=== PATIENT | male | born 1950 | race Caucasian/White ===

== ENCOUNTER → 2017-11-07 | Outpatient (CLI) | payer OTHER, MEDICARE | END | disposition home or self-care (01) | LOC: US 09:29 | PROVIDERS: ATTEND Internal Medicine Nephrology | DX: N18.9 Chronic kidney disease, unspecified (principal) | CPT/HCPCS: 76770 ==

== ENCOUNTER 2017-11-10 21:44 | Inpatient (IN) | payer OTHER, MEDICARE ==
[~2017-11-10] VITALS: Ht 162.6 cm; Wt 76.2 kg
[2017-11-11] MEDS ORDERED: DIPHENHYDRAMINE 25MG CAPSULE PO ONE (01:30)
[2017-11-11] MEDS ORDERED: ALBUTEROL (0.083%) 2.5MG/3ML NEB HHN STA (06:45)
[2017-11-11 07:14] LABS: HEMATOCRIT. 35.3 % (42.0-52.0); HEMOGLOBIN. 12.3 g/dL (14.0-18.0); MEAN CORPUSCULAR HEMOGLOBIN 30.4 pg (28.0-32.0); MEAN CORPUSCULAR VOLUME 86.9 fL (80.0-94.0); MEAN PLATELET VOLUME 6.6 fl (7.4-10.4); PLATELET 379 x1000/uL (130-400); RED BLOOD CELL COUNT 4.07 mill/uL (4.7-6.1); RED CELL DISTRIBUTION WIDTH 12.8 % (11.6-14.6)
[2017-11-11 07:23] LABS: INR 1.1; PROTHROMBIN TIME 11.9 sec (9.4-11.6)
[2017-11-11] MEDS ORDERED: DOXYCYCLINE HYCLATE 100 MG/VIAL IV SCH (07:30)
[2017-11-11] MEDS ORDERED: CEFTRIAXONE 1 G PREMIX 50 ML IV ONE (07:30)
[2017-11-11 07:43] LABS: PLATELET ESTIMATE NORMAL
[2017-11-11 08:06] LABS: CARBON DIOXIDE 30 mEq/L (21-32); CHLORIDE 86 mEq/L (98-107); TROPONIN I < 0.02 ng/mL (0.00-0.04)
[2017-11-11] MEDS: DIPHENHYDRAMINE 25MG CAPSULE PO SCH ×2 (09:08→22:35)
[2017-11-11] MEDS ORDERED: LACTATED RINGERS 1,000 ML IV STA (09:17)
[2017-11-11] MEDS ORDERED: DEXAMETHASONE 4MG/ML 1ML VIAL IV ONE (09:30)
[2017-11-11] MEDS ORDERED: SODIUM CHLORIDE 0.9% 1,000 ML IV ONE (09:30)
[2017-11-11] MEDS ORDERED: CLONIDINE 0.1MG TABLET PO PRN (12:00)
[2017-11-11] MEDS ORDERED: KETOROLAC 15MG/ML VIAL IV PRN (12:00)
[2017-11-11] MEDS ORDERED: MAGNESIUM/ALUMINUM HYDROXIDE/SIMETHICONE 30ML UDC PO PRN (12:00)
[2017-11-11] MEDS ORDERED: ONDANSETRON HCL 4MG/2ML VIAL IV PRN (12:00)
[2017-11-11] MEDS ORDERED: ACETAMINOPHEN 325MG TABLET PO PRN (12:00)
[2017-11-11] MEDS ORDERED: IPRATROPIUM/ALBUTEROL 0.5-3(2.5)MG/3ML NEB INH PRN (12:00)
[2017-11-11] MEDS ORDERED: ZOLPIDEM TARTRATE 5MG TABLET PO PRN (12:00)
[2017-11-11] MEDS ORDERED: NA PHOS,M-B/NA PHOS,DI-BA ENEMA 118ML PR PRN (12:00)
[2017-11-11] MEDS ORDERED: NITROGLYCERIN 0.4MG TABLET SL SL PRN (12:00)
[2017-11-11] MEDS ORDERED: MORPHINE SULFATE 2 MG/ML CPJ (NOT FOR IM USE) IV PRN (12:00)
[2017-11-11] MEDS: ENOXAPARIN 40MG/0.4ML SYR SUBCUT SCH (12:53)
[2017-11-11] MEDS ORDERED: AZITHROMYCIN 500 MG in DEXT 5% WATER 250 ML IV SCH (13:00)
[2017-11-11] MEDS ORDERED: DOXYCYCLINE 100 MG in SODIUM CHLORIDE 0.9% 100 ML IV NR (13:37)
[2017-11-11 13:59] LABS: VITAMIN B12 SERUM 1071 pg/mL (211-911)
[2017-11-11] MEDS: LORAZEPAM 0.5MG TABLET PO PRN ×2 (14:08→23:28)
[2017-11-11 14:11] LABS: FOLIC ACID (FOLATE) SERUM > 20.00 ng/mL (>5.38)
[2017-11-11 14:19] LABS: CREATINE KINASE 506 IU/L (39-308); CREATINE KINASE MB FRACTION 8.2 ng/mL (0.5-3.6); TROPONIN I < 0.02 ng/mL (0.00-0.04)
[2017-11-11] MEDS ORDERED: LEVOFLOXACIN 500MG PREMIX 100 ML IV ONE (15:30)
[2017-11-11] MEDS ORDERED: IPRATROPIUM/ALBUTEROL 0.5-3(2.5)MG/3ML NEB HHN PRN (15:45)
[2017-11-11 16:07] LABS: BG BASE EXCESS 1.9 mmol/L (-2.0-2.0); BG BILEVEL POS AIRWAY PRESSURE 15/5; BG CARBOXYHEMOGLOBIN 0.2 % (0.5-1.5); BG DEOXYHEMOGLOBIN 4.4 % (0.0-5.0); BG FRACTION INSPIRED OXYGEN 35; BG HCO3 ACT 27.6 mmol/L (22.0-26.0); BG METHEMOGLOBIN 0.3 % (0.0-1.5); BG OXYGEN SATURATION 95.6 % (92.0-98.5); BG OXYHEMOGLOBIN 95.1 % (94.0-97.0); BG PCO2 47.9 mmHg (35.0-45.0); BG PH 7.379 (7.350-7.450); BG PO2 82.8 mmHg (75.0-100.0); BG SAMPLE SITE RIGHT RADIAL; BG TOTAL HEMOGLOBIN 12.5 g/dL (12.0-18.0); BG VENT MODE MASK - BIPAP
[2017-11-11] MEDS ORDERED: DEXTROSE 50% WATER 50ML SYRINGE IV PRN (16:45)
[2017-11-11] MEDS: BLOOD SUGAR DIAGNOSTIC STRIP TEST SCH (21:00)
[2017-11-11] MEDS ORDERED: FAMOTIDINE 20MG/2ML VIAL IV SCH (21:00)
[2017-11-11 21:30] VITALS: BP 126/75
[2017-11-11 22:00] VITALS: BP 137/83
[2017-11-11] MEDS ORDERED: POTASSIUM CHLORIDE 20MEQ TABLET SR PO NR (22:00)
[2017-11-11] MEDS: INSULIN LISPRO 100 UNITS/ML SUBCUT SCH (22:00)
[2017-11-11] MEDS: FAMOTIDINE 20MG/2ML VIAL IV SCH (22:07)
[2017-11-11] MEDS ORDERED: LEVOFLOXACIN 500MG PREMIX 100 ML IV NR (23:00)
[2017-11-11] MEDS ORDERED: VANCOMYCIN 1500MG in DEXTROSE 5% WATER 250ML IV NR (23:00)
[2017-11-11 23:44] LABS: CREATINE KINASE 927 IU/L (39-308); CREATINE KINASE MB FRACTION 13.7 ng/mL (0.5-3.6); TROPONIN I < 0.02 ng/mL (0.00-0.04)
[2017-11-11] MEDS: DIPHENHYDRAMINE 50MG/ML VIAL IV PRN (23:56)
[2017-11-12] VITALS (12 sets, daily range): BP systolic 103–141; BP diastolic 51–79
[2017-11-12] MEDS: METHYLPREDNISOLONE SOD SUCC 40 MG/ML VIAL IV SCH ×4 (00:58→17:14)
[2017-11-12] MEDS: IPRATROPIUM/ALBUTEROL 0.5-3(2.5)MG/3ML NEB HHN SCH ×4 (01:12→19:28)
[2017-11-12 03:25] LABS: CLARITY URINE CLEAR (CLEAR); COLOR URINE YELLOW (YELLOW); KETONES URINE NEGATIVE (NEGATIVE); LEUKOCYTE ESTERASE URINE NEGATIVE (NEGATIVE); NITRITE URINE NEGATIVE (NEGATIVE); OCCULT BLOOD URINE NEGATIVE (NEGATIVE); PROTEIN URINE NEGATIVE (NEGATIVE); SPECIFIC GRAVITY URINE 1.017 (1.005-1.030)
[2017-11-12 03:55] LABS: *AMPHETAMINES SCREEN URINE NEGATIVE (NEGATIVE); *BARBITURATES SCREEN URINE NEGATIVE (NEGATIVE); *BENZODIAZEPINES SCREEN URINE NEGATIVE (NEGATIVE); *COCAINE SCREEN URINE NEGATIVE (NEGATIVE); CANNABINOID URINE SCREEN NEGATIVE (NEGATIVE); METHADONE URINE SCREEN NEGATIVE (NEGATIVE); OPIATES URINE SCREEN PRESUMTIVE POSITIVE (NEGATIVE); PHENCYCLIDINE URINE SCREEN NEGATIVE (NEGATIVE)
[2017-11-12] MEDS: DIPHENHYDRAMINE 25MG CAPSULE PO SCH (05:47)
[2017-11-12] MEDS: BLOOD SUGAR DIAGNOSTIC STRIP TEST SCH ×4 (06:04→21:26)
[2017-11-12 07:07] LABS: BG BASE EXCESS 2.3 mmol/L (-2.0-2.0); BG CARBOXYHEMOGLOBIN 0.3 % (0.5-1.5); BG DEOXYHEMOGLOBIN 3.8 % (0.0-5.0); BG HCO3 ACT 27.4 mmol/L (22.0-26.0); BG OXYGEN SATURATION 96.2 % (92.0-98.5); BG OXYHEMOGLOBIN 95.9 % (94.0-97.0); BG PCO2 44.3 mmHg (35.0-45.0); BG PH 7.409 (7.350-7.450); BG SAMPLE SITE RIGHT RADIAL; BG TOTAL HEMOGLOBIN 11.7 g/dL (12.0-18.0); BG VENT MODE NASAL CANNULA
[2017-11-12] MEDS: INSULIN LISPRO 100 UNITS/ML SUBCUT SCH ×4 (07:20→22:00)
[2017-11-12] MEDS: ENOXAPARIN 40MG/0.4ML SYR SUBCUT SCH (07:55)
[2017-11-12] MEDS: FAMOTIDINE 20MG/2ML VIAL IV SCH ×2 (07:55→21:06)
[2017-11-12] MEDS ORDERED: CEFTRIAXONE 1 G PREMIX 50 ML IV SCH (09:00)
[2017-11-12] MEDS ORDERED: IOHEXOL-350 100 ML BOTTLE ONE (09:39)
[2017-11-12] MEDS ORDERED: DIPHENHYDRAMINE 50MG/ML VIAL IV PRN (10:45)
[2017-11-12] MEDS ORDERED: VANCOMYCIN 1 G PREMIX 200 ML IV SCH (11:00)
[2017-11-12] MEDS: DIPHENHYDRAMINE 50MG/ML VIAL IV PRN (14:50)
[2017-11-12 15:24] LABS: BASOPHILS % 0.2 % (0.0-2.0); EOSINOPHILS % 0.9 % (0.0-5.0); HEMATOCRIT. 32.5 % (42.0-52.0); HEMOGLOBIN. 11.4 g/dL (14.0-18.0); LYMPHOCYTES % 1.6 % (20.0-50.0); MEAN CORPUSCULAR HEMOGLOBIN 31.1 pg (28.0-32.0); MEAN CORPUSCULAR VOLUME 89.1 fL (80.0-94.0); MONOCYTES % 0.6 % (2.0-8.0); NEUTROPHILS % 96.7 % (40.0-76.0); PLATELET 372 x1000/uL (130-400); RED BLOOD CELL COUNT 3.65 mill/uL (4.7-6.1)
[2017-11-12 15:36] LABS: CARBON DIOXIDE 33 mEq/L (21-32); CHLORIDE 91 mEq/L (98-107)
[2017-11-12] MEDS ORDERED: LEVOFLOXACIN 500MG PREMIX 100 ML IV SCH (21:00)
[2017-11-12] MEDS: LEVOFLOXACIN 500MG PREMIX 100 ML IV SCH ×2 (21:00→21:05)
[2017-11-13] VITALS (13 sets, daily range): BP systolic 111–143; BP diastolic 65–81
[2017-11-13] MEDS: IPRATROPIUM/ALBUTEROL 0.5-3(2.5)MG/3ML NEB HHN SCH ×4 (02:15→20:25)
[2017-11-13] MEDS: METHYLPREDNISOLONE SOD SUCC 40 MG/ML VIAL IV SCH ×2 (06:02)
[2017-11-13] MEDS: BLOOD SUGAR DIAGNOSTIC STRIP TEST SCH ×4 (06:03→21:36)
[2017-11-13] MEDS: INSULIN LISPRO 100 UNITS/ML SUBCUT SCH ×4 (06:04→21:00)
[2017-11-13] MEDS: ENOXAPARIN 40MG/0.4ML SYR SUBCUT SCH (08:21)
[2017-11-13] MEDS: FAMOTIDINE 20MG/2ML VIAL IV SCH ×2 (08:21→21:37)
[2017-11-14] VITALS (18 sets, daily range): BP systolic 115–160; BP diastolic 54–83
[2017-11-14] MEDS: IPRATROPIUM/ALBUTEROL 0.5-3(2.5)MG/3ML NEB HHN SCH (02:18)
[2017-11-14] MEDS: DIPHENHYDRAMINE 50MG/ML VIAL IV PRN ×3 (02:40→23:46)
[2017-11-14] MEDS: BLOOD SUGAR DIAGNOSTIC STRIP TEST SCH ×4 (05:45→21:09)
[2017-11-14] MEDS: INSULIN LISPRO 100 UNITS/ML SUBCUT SCH ×4 (07:20→21:00)
[2017-11-14] MEDS: FAMOTIDINE 20MG/2ML VIAL IV SCH ×2 (08:12→21:01)
[2017-11-14] MEDS: ENOXAPARIN 40MG/0.4ML SYR SUBCUT SCH (08:12)
[2017-11-14] MEDS: PREDNISONE 20MG TABLET PO SCH (12:20)
[2017-11-14] MEDS: GUAIFENESIN 200MG/10ML SUGAR FREE UDC PO PRN (19:36)
[2017-11-14] MEDS: LEVOFLOXACIN 500MG PREMIX 100 ML IV SCH (21:03)
[2017-11-15] VITALS (16 sets, daily range): BP systolic 111–167; BP diastolic 59–102
[2017-11-15] MEDS: IPRATROPIUM/ALBUTEROL 0.5-3(2.5)MG/3ML NEB HHN SCH ×4 (01:20→21:23)
[2017-11-15] MEDS: DIPHENHYDRAMINE 50MG/ML VIAL IV PRN (04:27)
[2017-11-15] MEDS: GUAIFENESIN 200MG/10ML SUGAR FREE UDC PO PRN (06:00)
[2017-11-15] MEDS: BLOOD SUGAR DIAGNOSTIC STRIP TEST SCH ×4 (06:00→20:13)
[2017-11-15 06:49] LABS: BASOPHILS % 0.1 % (0.0-2.0); EOSINOPHILS % 6.1 % (0.0-5.0); HEMATOCRIT. 31.2 % (42.0-52.0); HEMOGLOBIN. 10.7 g/dL (14.0-18.0); LYMPHOCYTES % 8.4 % (20.0-50.0); MEAN CORPUSCULAR HEMOGLOBIN 30.8 pg (28.0-32.0); MEAN CORPUSCULAR VOLUME 89.6 fL (80.0-94.0); MEAN PLATELET VOLUME 7.4 fl (7.4-10.4); NEUTROPHILS % 78.4 % (40.0-76.0); PLATELET 350 x1000/uL (130-400); RED BLOOD CELL COUNT 3.48 mill/uL (4.7-6.1); RED CELL DISTRIBUTION WIDTH 13.2 % (11.6-14.6)
[2017-11-15 07:18] LABS: CARBON DIOXIDE 29 mEq/L (21-32); CHLORIDE 94 mEq/L (98-107)
[2017-11-15] MEDS: INSULIN LISPRO 100 UNITS/ML SUBCUT SCH ×4 (07:20→20:14)
[2017-11-15] MEDS: PREDNISONE 20MG TABLET PO SCH (08:52)
[2017-11-15] MEDS: FAMOTIDINE 20MG/2ML VIAL IV SCH ×2 (08:52→20:17)
[2017-11-15] MEDS: ENOXAPARIN 40MG/0.4ML SYR SUBCUT SCH (08:53)
[2017-11-15] MEDS: LEVOFLOXACIN 500MG PREMIX 100 ML IV SCH (20:20)
[2017-11-16] VITALS (15 sets, daily range): BP systolic 91–185; BP diastolic 67–104
[2017-11-16] MEDS: DIPHENHYDRAMINE 50MG/ML VIAL IV PRN ×4 (01:03→23:21)
[2017-11-16] MEDS: IPRATROPIUM/ALBUTEROL 0.5-3(2.5)MG/3ML NEB HHN SCH ×4 (02:27→19:49)
[2017-11-16] MEDS: BLOOD SUGAR DIAGNOSTIC STRIP TEST SCH ×4 (06:15→21:45)
[2017-11-16 06:30] LABS: BASOPHILS % 0.3 % (0.0-2.0); EOSINOPHILS % 14.4 % (0.0-5.0); HEMATOCRIT. 32.5 % (42.0-52.0); HEMOGLOBIN. 11.2 g/dL (14.0-18.0); LYMPHOCYTES % 10.3 % (20.0-50.0); MEAN CORPUSCULAR HEMOGLOBIN 30.9 pg (28.0-32.0); MEAN CORPUSCULAR VOLUME 89.2 fL (80.0-94.0); MEAN PLATELET VOLUME 7.4 fl (7.4-10.4); MONOCYTES % 7.1 % (2.0-8.0); NEUTROPHILS % 67.9 % (40.0-76.0); PLATELET 345 x1000/uL (130-400); RED BLOOD CELL COUNT 3.64 mill/uL (4.7-6.1); RED CELL DISTRIBUTION WIDTH 12.9 % (11.6-14.6)
[2017-11-16 07:11] LABS: CHLORIDE 94 mEq/L (98-107)
[2017-11-16] MEDS: INSULIN LISPRO 100 UNITS/ML SUBCUT SCH ×4 (07:20→21:00)
[2017-11-16 08:05] LABS: CARBON DIOXIDE 30 mEq/L (21-32)
[2017-11-16] MEDS: PREDNISONE 20MG TABLET PO SCH (09:24)
[2017-11-16] MEDS: FAMOTIDINE 20MG/2ML VIAL IV SCH ×2 (09:27→21:56)
[2017-11-16] MEDS: ENOXAPARIN 40MG/0.4ML SYR SUBCUT SCH (09:28)
[2017-11-16] MEDS: LEVOFLOXACIN 500MG PREMIX 100 ML IV SCH (21:59)
[2017-11-17] VITALS (14 sets, daily range): BP systolic 111–169; BP diastolic 72–110
[2017-11-17] MEDS: IPRATROPIUM/ALBUTEROL 0.5-3(2.5)MG/3ML NEB HHN SCH ×4 (01:13→20:50)
[2017-11-17] MEDS: BLOOD SUGAR DIAGNOSTIC STRIP TEST SCH ×4 (05:56→21:16)
[2017-11-17] MEDS: INSULIN LISPRO 100 UNITS/ML SUBCUT SCH ×4 (07:20→21:00)
[2017-11-17] MEDS: FAMOTIDINE 20MG/2ML VIAL IV SCH ×2 (08:41→21:25)
[2017-11-17] MEDS: DIPHENHYDRAMINE 50MG/ML VIAL IV PRN (08:41)
[2017-11-17] MEDS: PREDNISONE 20MG TABLET PO SCH (08:41)
[2017-11-17] MEDS: DOCUSATE SODIUM 100MG CAPSULE PO PRN (08:41)
[2017-11-17] MEDS: ENOXAPARIN 40MG/0.4ML SYR SUBCUT SCH (08:42)
[2017-11-18] VITALS (12 sets, daily range): BP systolic 116–157; BP diastolic 54–83
[2017-11-18] MEDS: DIPHENHYDRAMINE 50MG/ML VIAL IV PRN ×2 (00:18→09:09)
[2017-11-18] MEDS: IPRATROPIUM/ALBUTEROL 0.5-3(2.5)MG/3ML NEB HHN SCH ×4 (02:22→21:27)
[2017-11-18] MEDS: BLOOD SUGAR DIAGNOSTIC STRIP TEST SCH ×4 (06:50→21:08)
[2017-11-18] MEDS: INSULIN LISPRO 100 UNITS/ML SUBCUT SCH ×4 (07:20→21:00)
[2017-11-18] MEDS: ENOXAPARIN 40MG/0.4ML SYR SUBCUT SCH (08:58)
[2017-11-18] MEDS: FAMOTIDINE 20MG/2ML VIAL IV SCH ×2 (08:59→21:02)
[2017-11-18] MEDS: DOCUSATE SODIUM 100MG CAPSULE PO PRN (08:59)
[2017-11-18] MEDS: PREDNISONE 20MG TABLET PO SCH (08:59)
[2017-11-18 09:54] LABS: BG BASE EXCESS 5.9 mmol/L (-2.0-2.0); BG CARBOXYHEMOGLOBIN 0.2 % (0.5-1.5); BG DEOXYHEMOGLOBIN 5.4 % (0.0-5.0); BG FRACTION INSPIRED OXYGEN 21; BG HCO3 ACT 30.9 mmol/L (22.0-26.0); BG METHEMOGLOBIN 0.4 % (0.0-1.5); BG OXYGEN SATURATION 94.6 % (92.0-98.5); BG PCO2 46.8 mmHg (35.0-45.0); BG PH 7.438 (7.350-7.450); BG PO2 72.7 mmHg (75.0-100.0); BG SAMPLE SITE RIGHT BRACHIAL; BG TOTAL HEMOGLOBIN 12.1 g/dL (12.0-18.0); BG VENT MODE ROOM AIR
[2017-11-18 13:54] LABS: CHLORIDE 91 mEq/L (98-107)
[2017-11-18 14:03] LABS: CARBON DIOXIDE 30 mEq/L (21-32)
[2017-11-18] MEDS ORDERED: TAMSULOSIN HCL 0.4MG SR CAPSULE PO SCH (21:00)
[2017-11-19] VITALS (9 sets, daily range): BP systolic 106–145; BP diastolic 61–85
[2017-11-19] MEDS: IPRATROPIUM/ALBUTEROL 0.5-3(2.5)MG/3ML NEB HHN SCH ×3 (02:00→13:20)
[2017-11-19] MEDS: BLOOD SUGAR DIAGNOSTIC STRIP TEST SCH ×3 (06:47→16:50)
[2017-11-19] MEDS: INSULIN LISPRO 100 UNITS/ML SUBCUT SCH ×2 (07:20→11:36)
[2017-11-19] MEDS ORDERED: DUTASTERIDE 0.5MG CAPSULE PO SCH (09:00)
[2017-11-19] MEDS: DOCUSATE SODIUM 100MG CAPSULE PO PRN (09:06)
[2017-11-19] MEDS: FAMOTIDINE 20MG/2ML VIAL IV SCH (09:06)
[2017-11-19] MEDS: ENOXAPARIN 40MG/0.4ML SYR SUBCUT SCH (09:07)
[2017-11-19] MEDS: PREDNISONE 20MG TABLET PO SCH (09:09)
== END 2017-11-19 18:25 | disposition home or self-care (01) | DRG 871 ==
LOC: ER 21:44 → 3WST 11-11 08:07 → EDBEDREQ 11-11 08:09 → EDBEDREQTM 11-11 08:09 → SUPCPDRO 11-11 11:47 → EDBEDREQ 11-11 14:22 → EDBEDREQSVC 11-11 14:22 → ENRESERV 11-11 15:28 → CANBEDREQ 11-11 16:18 → 3WST 11-13 15:43
PROVIDERS: ADMIT Internal Medicine; ATTEND Internal Medicine
PROC: 5A09357 Assistance with Respiratory Ventilation, Less than 24 Consecutive Hours, Continuous Positive Airway Pressure (ICD-10-PCS; principal; 2017-11-11)
DX: A41.9 Sepsis, unspecified organism (principal); J96.02 Acute respiratory failure with hypercapnia; J96.01 Acute respiratory failure with hypoxia; I11.0 Hypertensive heart disease with heart failure; J18.9 Pneumonia, unspecified organism; I50.9 Heart failure, unspecified; J44.0 Chronic obstructive pulmonary disease with (acute) lower respiratory infection; J44.1 Chronic obstructive pulmonary disease with (acute) exacerbation; E87.1 Hypo-osmolality and hyponatremia; E44.1 Mild protein-calorie malnutrition; E87.6 Hypokalemia; D63.8 Anemia in other chronic diseases classified elsewhere; L27.0 Generalized skin eruption due to drugs and medicaments taken internally; R33.8 Other retention of urine; N40.1 Benign prostatic hyperplasia with lower urinary tract symptoms; T38.0X5A Adverse effect of glucocorticoids and synthetic analogues, initial encounter; Z88.0 Allergy status to penicillin; Z79.899 Other long term (current) drug therapy; Y92.89 Other specified places as the place of occurrence of the external cause
CPT/HCPCS: 36415; 36600; 71045; 71275; 80048; 80053; 80061; 80305; 81003; 82375; 82550; 82553; 82607; 82746; 82805; 82962; 83036; 83540; 83550; 83605; 83880; 84484; 85025; 85610; 87804; 93005; 93306; 93970; 94640; 94660; 94664; 96361; 96365; 96367; 96372; 99285; J0456; J0696; J1100; J1200; J1650; J1815; J1956; J2920; J3370; J3490; J7030; J7040; J7050; J7060; J7120; J7512; J7611; J7620; Q0163; Q9967